=== PATIENT | female | born 1980 | race Two or more races ===

== ENCOUNTER 2022-01-31 13:10 | Inpatient (IN) | payer MEDICAID, OTHER ==
[~2022-01-31] VITALS: Ht 30.5 cm; Wt 0.5 kg
[2022-01-31] MEDS ORDERED: LORazepam 2MG/ML-1ML VIAL ONE ×2 (13:14→13:19)
[2022-01-31] MEDS ORDERED: SODIUM CHLORIDE 0.9% 1,000 ML IVB ONE (13:30)
[2022-01-31] MEDS ORDERED: LORazepam 2MG/ML-1ML VIAL IV ONE ×2 (13:45)
[2022-01-31 14:43] LABS: Hematocrit 42.7 % (36.0-46.0); Hemoglobin 14.4 g/dL (12.2-16.2); Mean Corpuscular Hemoglobin 32.3 pg (28.0-32.0); Mean Corpuscular Hgb Conc. 33.8 g/dL (32.0-36.0); Mean Corpuscular Volume 95.7 fL (80.0-100.0); Red Blood Cells 4.46 10^6/uL (4.0-5.20); Red Cell Distribution Width 13.5 % (11.8-14.3); White Blood Cell 4.5 10^3/uL (4.4-10.8)
[2022-01-31 14:43] LABS: Urine WBC None Seen /hpf (0 - 5)
[2022-01-31 14:50] LABS: Albumin 4.3 g/dL (3.4-5.0); Calcium 9.2 mg/dL (8.5-10.1); Potassium 3.3 mmol/L (3.5-5.1)
[2022-01-31 14:53] LABS: BUN/Creatinine Ratio 8.2; Bilirubin, Total 0.3 mg/dL (0.2-1.0); Total Protein 8.2 g/dL (6.4-8.2)
[2022-01-31] MEDS ORDERED: LORazepam 2MG/ML-1ML VIAL IV PRN (15:00)
[2022-01-31] MEDS ORDERED: DEXTROSE (50%) 50ML SYRG IV ONE (15:00)
[2022-01-31] MEDS ORDERED: POTASSIUM CHL 20 Meq TABLET PO ONE (15:00)
[2022-01-31] MEDS ORDERED: POTASSIUM CHLORIDE 20 MEQ in D5W 5% 1,000 ML IV SCH (15:00)
[2022-01-31] MEDS ORDERED: NITROGLYCERIN 0.4 MG SL TAB SL PRN (15:15)
[2022-01-31] MEDS ORDERED: MORPHINE SULFATE INJECTION 2 MG/ML SYRG IV PRN ×2 (15:15→16:15)
[2022-01-31] MEDS ORDERED: MORPHINE SULFATE 4 MG/ML SYR/VIAL IV ONE ×2 (15:15→15:30)
[2022-01-31 15:30] LABS: Band Neutrophils % (manual) 0; Basophils % (manual) 0 (0.0-2.0); Blast Cells 0; Metamyelocytes % 0; Myelocytes % 0; Promyelocytes % 0
[2022-01-31 15:34] LABS: Alcohol, Urine < 3.0 mg/dL (0-10); Amphetamine Screen, Urine NEGATIVE (NEGATIVE); Barbiturate Scree,Urine NEGATIVE (NEGATIVE); Benzodiazephine Screen, Urine NEGATIVE (NEGATIVE); Cannabinoid Screen, Urine POSITIVE (NEGATIVE); Cocaine Screen, Urine POSITIVE (NEGATIVE); Opiate Scree,Urine NEGATIVE (NEGATIVE); Phencyclidine Screen, Urine NEGATIVE (NEGATIVE)
[2022-01-31 15:46] VITALS: BP 143/55
[2022-01-31 16:07] LABS: Magnesium 2.2 mg/dL (1.6-2.6)
[2022-01-31] MEDS ORDERED: IPRATROPIUM BROM 0.5 MG/2.5ML INH SOL NEB ONE (16:15)
[2022-01-31] MEDS ORDERED: METOCLOPRAMIDE HCL 5MG/ml INJ 2ml VIAL IV PRN (16:15)
[2022-01-31] MEDS ORDERED: FAMOTIDINE (10MG/ML) 2ML VL IV ONE (16:15)
[2022-01-31] MEDS ORDERED: THIAMINE 100mg/ml INJ (200mg/2ml VIAL) IV ONE (16:15)
[2022-01-31] MEDS ORDERED: HYDROcodone-ACET 5/325MG TAB PO ONE (16:15)
[2022-01-31] MEDS ORDERED: LACTULOSE 20Gm/30ML SOLN PO PRN (16:15)
[2022-01-31] MEDS ORDERED: MULTIPLE VITAMINS W/ MINERALS TAB PO ONE (16:15)
[2022-01-31] MEDS ORDERED: HYDROcodone-ACET 5/325MG TAB PO PRN (16:15)
[2022-01-31] MEDS ORDERED: FOLIC ACID 1 MG TAB PO ONE (16:15)
[2022-01-31] MEDS ORDERED: DOCUSATE SOD 100 MG CAP PO PRN (16:15)
[2022-01-31] MEDS ORDERED: hydrALAZINE HCL 20 MG/ML VL IV PRN (16:15)
[2022-01-31] MEDS ORDERED: cefTRIAXone 1GM/50ML D5W 50 ML IV ONE ×2 (16:30→16:45)
[2022-01-31 16:40] LABS: Eosinophils % (manual) 2 (0-7); Lymphocytes % (manual) 33 (10.0-50.0); Monocytes % (manual) 12 (0-12); Reactive Lymphocytes 3
[2022-01-31] MEDS ORDERED: CLINDAMYCIN 600MG IV 50 ML IV ONE (17:15)
[2022-01-31 17:16] LABS: Urine Bacteria NONE SEEN /hpf (None Seen); Urine Blood Negative /uL (Negative); Urine Specific Gravity 1.007 (1.001-1.035)
[2022-01-31] MEDS ORDERED: IPRATROPIUM BROM 0.5 MG/2.5ML INH SOL NEB SCH (18:00)
[2022-01-31] MEDS ORDERED: ATORVASTATIN 20 MG TAB PO SCH (22:00)
[2022-02-01] MEDS ORDERED: CLINDAMYCIN 600MG IV 50 ML IV SCH (02:00)
[2022-02-01] MEDS ORDERED: cefTRIAXone 1GM/50ML D5W 50 ML IV SCH (09:00)
[2022-02-01] MEDS ORDERED: FAMOTIDINE (10MG/ML) 2ML VL IV SCH (10:00)
[2022-02-01] MEDS ORDERED: MULTIPLE VITAMINS W/ MINERALS TAB PO SCH (10:00)
[2022-02-01] MEDS ORDERED: ASPirin 81 mg TAB PO SCH (10:00)
[2022-02-01] MEDS ORDERED: FOLIC ACID 1 MG TAB PO SCH (10:00)
[2022-02-01] MEDS ORDERED: ENOXAPARIN SOD 40 MG/0.4 ML SYRINGE SC SCH (10:00)
[2022-02-01] MEDS ORDERED: CHOLECALCIFEROL (VITD3) 2,000 UNIT CAP/TAB PO SCH (10:00)
[2022-02-01] MEDS ORDERED: THIAMINE HCL 100 MG TAB PO SCH (10:00)
== END 2022-01-31 16:52 | disposition left against medical advice (07) | DRG 53 ==
LOC: ER 13:10 → OVERFLOW 15:01
PROVIDERS: ADMIT Hospitalist; ATTEND Hospitalist
DX: G40.401 Other generalized epilepsy and epileptic syndromes, not intractable, with status epilepticus (principal); J69.0 Pneumonitis due to inhalation of food and vomit; E11.649 Type 2 diabetes mellitus with hypoglycemia without coma; N39.0 Urinary tract infection, site not specified; E78.5 Hyperlipidemia, unspecified; E87.6 Hypokalemia; F12.90 Cannabis use, unspecified, uncomplicated; F17.210 Nicotine dependence, cigarettes, uncomplicated; Z20.822 Contact with and (suspected) exposure to COVID-19; Z53.29 Procedure and treatment not carried out because of patient's decision for other reasons; I10 Essential (primary) hypertension; M24.412 Recurrent dislocation, left shoulder; Z85.43 Personal history of malignant neoplasm of ovary; Z86.61 Personal history of infections of the central nervous system; Z90.721 Acquired absence of ovaries, unilateral; Z90.49 Acquired absence of other specified parts of digestive tract; Z72.820 Sleep deprivation; Z91.018 Allergy to other foods
CPT/HCPCS: 36415; 70450; 71045; 73030; 80053; 80307; 81001; 82542; 82550; 82962; 83735; 84100; 84146; 84484; 85007; 85027; 87086; 93005; 96361; 96374; G0378; J7060